=== PATIENT | male | born 1965 | race Asian ===

== ENCOUNTER 2019-04-02 17:16 | Outpatient (CLI) | payer OTHER | END 2019-04-02 23:59 | disposition short-term general hospital (02) | LOC: EMS 17:16 | PROVIDERS: ATTEND Surgery | DX: S99.911A Unspecified injury of right ankle, initial encounter (principal); V49.88XA Car occupant (driver) (passenger) injured in other specified transport accidents, initial encounter; X83.8XXA Intentional self-harm by other specified means, initial encounter; Y92.414 Local residential or business street as the place of occurrence of the external cause | CPT/HCPCS: A0425; A0429 ==